=== PATIENT | male | born 1990 | race Caucasian/White ===

== ENCOUNTER 2018-04-09 21:09 | Emergency (ER) | payer SELFPAY ==
[2018-04-09 21:14] VITALS: BP 109/71
--- NOTE | 2018-04-09 21:27 | EDPHY ---
H & P Stated Complaint: R FOOT PAIN X 1 YEAR AFER A BLISTER, DENIES NEW TRAUMA - Personal History Current Tetanus/Diphtheria Vaccine: Yes Current Tetanus Diphtheria and Acellular Pertussis (TDAP): Yes - Medical/Surgical History Hx Asthma: No Hx Chronic Respiratory Disease: No Hx Diabetes: No Hx Cardiac Disease: No Hx Renal Disease: No Hx Cirrhosis: No Hx Alcoholism: No Hx HIV/AIDS: No Hx Splenectomy or Spleen Trauma: No Other PMH: MIGRAINES - Social History Smoking Status: Never smoked Time Seen by Provider: 04/09/18 21:20 HPI/ROS: Chief complaint: Right foot pain History of present illness: This is a 27-year-old male who presents to the emergency department for right foot pain. He states he has had pain in the ball of his foot for at least a year. It developed after he developed a blister there. He now feels a lesion deep in the skin. The pain waxes and wanes. It is been worsening over the last 2 weeks. He denies any recent trauma. No abnormal coolness in the foot. No paresthesias. He is still able to move it well. (Galen Jean) - Physical Exam Exam: General: Alert, no toxic Skin: No abnormal lesions to the right foot Musculoskeletal: He can move all digits in the right foot. He is moving the ankle without difficulty. Tenderness over the ball of the foot. The rest the foot, ankle and Achilles region nontender. Vascular: DP and PT pulses 2+. Neurologic: Sensation intact in the right foot. (Galen Jean) Constitutional: Initial Vital Signs Temperature (C) 37.1 C 04/09/18 21:12 Heart Rate 118 H 04/09/18 21:12 Respiratory Rate 18 04/09/18 21:12 Blood Pressure 109/71 04/09/18 21:12 O2 Sat (%) 94 04/09/18 21:12 O2 Delivery Mode Room Air Allergies/Adverse Reactions: No Known Allergies Allergy (Unverified 04/09/18 21:14) Home Medications: Medication Instructions Recorded Medical Marijuana For Migraine 04/09/18 Medical Decision Making ED Course/Re-evaluation: Patient is seen under the supervision of my secondary supervising physician Dr. Tito Calero. Patient presents to the emergency department for chronic foot pain. He reports he has had pain for least a year. This appears to be chronic. No report of acute changes. The foot is neurovascularly intact. He has good musculoskeletal control. Do not believe imaging studies warranted this evening. Pain control with [id number] medications discussed. He is referred to Podiatry for recheck. Return precautions are given. (Galen Jean) Differential Diagnosis: Included but not limited to contusion, sprain or strain, Kwon's neuroma (Galen Jean) Departure - Departure Disposition: Home, Routine, Self-Care Clinical Impression: Right foot pain Condition: Good Instructions: Metatarsalgia (DC) Additional Instructions: Follow-up with Podiatry or your primary care doctor for continued care Use ibuprofen and Tylenol for pain control If symptoms worsen or new symptoms develop return to the emergency room Referrals: NONE *PRIMARY CARE P,. [Primary Care Provider] - As per Instructions [facility],. [Clinic] - As per Instructions Lourdes Hdez DPM [Doctor of Podiatric Medicine] - As per Instructions
== END 2018-04-09 21:40 | disposition home or self-care (01) ==
DX: M79.671 Pain in right foot (principal)